=== PATIENT | male | born 1995 | race Caucasian/White ===

== ENCOUNTER → 2017-08-25 | Emergency (ER) | payer OTHER ==
[~2017-08-25] VITALS: Ht 162.6 cm; Wt 55.3 kg
[~2017-08-25] MED LIST: AMOX-CLAV 875-1 EACH; AMOX-CLAV 875-1 EACH PO; MUPIROCIN15 GM TOP
== END | disposition home or self-care (01) ==
LOC: ER 23:12
DX: S01.25XA Open bite of nose, initial encounter (principal); J34.0 Abscess, furuncle and carbuncle of nose; W54.0XXA Bitten by dog, initial encounter; Y93.89 Activity, other specified; Y92.89 Other specified places as the place of occurrence of the external cause; Y99.8 Other external cause status

== ENCOUNTER 2018-12-09 19:15 | Emergency (ER) | payer OTHER ==
[~2018-12-09] VITALS: Ht 167.6 cm; Wt 56.7 kg
[2018-12-09] MEDS ORDERED: PANADOL EXTRA500 MG (19:31)
== END 2018-12-09 22:29 | disposition home or self-care (01) ==
LOC: ER 19:15
DX: J11.1 Influenza due to unidentified influenza virus with other respiratory manifestations (principal); R50.9 Fever, unspecified

== ENCOUNTER 2023-10-16 10:25 | Emergency (ER) | payer OTHER ==
[~2023-10-16] VITALS: Ht 167.6 cm; Wt 59.9 kg
[~2023-10-16 10:25] MED LIST changes: +PANADOL EXTRA500 MG
[2023-10-16] MEDS ORDERED: ONDANSETRON HCL 2 MG/ML VIAL IM ONE (12:00)
[2023-10-16] MEDS ORDERED: GUAIFENESIN/DEXTROMETHORPHAN 100 MG/5 ML ML PO ONE (12:00)
[2023-10-16] MEDS ORDERED: CEFTRIAXONE SODIUM 2,000 MG VIAL IM ONE (12:00)
[2023-10-16 12:22] LABS: HEMATOCRIT 46.5 % (39.0-48.0); HEMOGLOBIN 16.2 g/dL (13-16.00); MEAN CELL VOLUME 84.5 fL (80.0-100.00); MEAN CORPUSCULAR HEMOGLOBIN 29.4 pg (27.00-32.0); MEAN CORPUSCULAR HGB CONC 34.8 g/dl (32.0-36.0); PLATELET COUNT 205 K/uL (150-450); RED CELL DISTRIBUTION WIDTH 13.4 % (11.5-14.5)
== END 2023-10-16 14:09 | disposition home or self-care (01) ==
LOC: ER 10:25
PROVIDERS: General Practice
DX: J02.0 Streptococcal pharyngitis (principal); R50.9 Fever, unspecified; R51.9 Headache, unspecified